=== PATIENT | male | born 1965 | race Caucasian/White ===

== ENCOUNTER → 2020-06-09 09:25 | Outpatient (CLI) | payer BC, SELFPAY ==
--- NOTE | 2020-06-09 | DI.RAD.S_ITS ---
PROCEDURE: XR CERVICAL SPINE 4V OR 5V INDICATIONS: XR SEGMENTAL/SOMA DYS CERVICAL REGION/ CERVICALGIA TECHNIQUE: 6 views of the cervical spine acquired. COMPARISON: None. FINDINGS: Bones: No fracture identified. Grade 1 anterolisthesis of C4 on C5. Multilevel degenerative endplate sclerosis and spurring. Diffuse facet arthropathy. Straightening of the normal lordotic curvature. On the right, moderate bony foraminal narrowing at C3-C4 and mild bony foraminal stenosis at C5-C6 and C6-C7. On the left, moderate to severe bony foraminal stenosis at C4-C5 and C6-C7. Mild bony foraminal narrowing at C5-C6 and C7-T1. IMPRESSION: Multilevel cervical spondylosis as detailed above Bilateral bony foraminal narrowing. Straightening of the normal lordotic curvature. Dictated by: Adama Martinez M.D. on 06/09/2020 at 11:28 Approved by: Adama Martinez M.D. on 06/09/2020 at 11:30
== END ==
PROVIDERS: Referring Provider Chiropractor; Visit Provider Chiropractor
DX: M54.2 Cervicalgia (principal); M99.01 Segmental and somatic dysfunction of cervical region; M47.812 Spondylosis without myelopathy or radiculopathy, cervical region; M48.02 Spinal stenosis, cervical region; M43.12 Spondylolisthesis, cervical region
CPT/HCPCS: 72050